=== PATIENT | male | born 1990 | race Caucasian/White ===

== ENCOUNTER 2017-12-01 07:22 | Emergency (ER) | payer SELFPAY | END 2017-12-01 08:16 | disposition home or self-care (01) | LOC: BURERS 07:22 | DX: J06.9 Acute upper respiratory infection, unspecified (principal) | CPT/HCPCS: 87081; 87430; 87804; 99283 ==

== ENCOUNTER 2017-12-17 13:35 | Emergency (ER) | payer SELFPAY ==
[2017-12-17] MEDS ORDERED: Adacel (T-DAP) 0.5 ML VIAL ONE (13:48)
[2017-12-17] MEDS ORDERED: Triple Antibiotic Oint 1 GM Packet ONE (15:09)
[2017-12-17] MEDS ORDERED: Cephalexin 500 MG CAP ONE (15:09)
--- NOTE | 2017-12-17 18:38 | RAD ---
RIGHT ELBOW TWO VIEWS: 12/17/2017 FINDINGS: No fracture or joint effusion is seen. All bones appear intact. IMPRESSION: No acute bony findings. POS: HOME
== END 2017-12-17 15:25 | disposition home or self-care (01) ==
LOC: BURERS 13:35
DX: S41.111A Laceration without foreign body of right upper arm, initial encounter (principal); Z23 Encounter for immunization; W26.8XXA Contact with other sharp object(s), not elsewhere classified, initial encounter
CPT/HCPCS: 12032; 90471; 90715

== ENCOUNTER 2017-12-27 15:19 | Emergency (ER) | payer SELFPAY | END 2017-12-27 15:27 | disposition home or self-care (01) | LOC: BURERS 15:19 | DX: S41.111D Laceration without foreign body of right upper arm, subsequent encounter (principal) ==

== ENCOUNTER 2018-07-22 19:14 | Emergency (ER) | payer SELFPAY | END 2018-07-22 19:43 | disposition home or self-care (01) | LOC: BURERS 19:14 | DX: M75.102 Unspecified rotator cuff tear or rupture of left shoulder, not specified as traumatic (principal) | CPT/HCPCS: 99281 ==